=== PATIENT | female | born 1985 | race Caucasian/White ===

== ENCOUNTER 2017-09-06 09:48 | Emergency (ER) | payer OTHER | END 2017-09-06 13:03 | disposition home or self-care (01) | LOC: FTE 09:48 | DX: R51 Headache (principal); F43.9 Reaction to severe stress, unspecified | CPT/HCPCS: 99283; Z7502 ==

== ENCOUNTER 2017-11-11 19:19 | Emergency (ER) | payer OTHER | END 2017-11-11 21:26 | disposition home or self-care (01) | LOC: FTE 19:19 | DX: J06.9 Acute upper respiratory infection, unspecified (principal) | CPT/HCPCS: 71045; 99283-25 ==

== ENCOUNTER 2018-05-22 06:33 | Emergency (ER) | payer OTHER ==
[2018-05-22 07:05] LABS: ADD MAN DIFF? NO
[2018-05-22 07:06] LABS: BASOPHILS % 0.6 % (0.0-2.0); EOSINOPHILS # 0.1 10^3/ul (0.0-0.5); EOSINOPHILS % 2.7 % (0.0-7.0); HEMATOCRIT 39.9 % (37.0-47.0); HEMOGLOBIN 12.8 g/dl (12.0-16.0); LYMPHOCYTES # 1.1 10^3/ul (0.8-2.9); LYMPHOCYTES % 21.7 % (15.0-51.0); MEAN CORPUSCULAR HEMOGLOBIN 27.3 pg (29.0-33.0); MEAN CORPUSCULAR HGB CONC 32.1 g/dl (32.0-37.0); MEAN CORPUSCULAR VOLUME 85.1 fl (82.0-101.0); MEAN PLATELET VOLUME 10.3 fl (7.4-10.4); MONOCYTE # 0.5 10^3/ul (0.3-0.9); NEUTROPHIL # 3.4 10^3/ul (1.6-7.5); NEUTROPHILS % 64.6 % (39.0-77.0); PLATELET COUNT 292 10^3/UL (140-415); RED BLOOD COUNT 4.69 10^6/ul (4.20-5.40); RED CELL DISTRIBUTION WIDTH 13.3 % (11.5-14.5)
[2018-05-22 07:06] LABS: WHITE BLOOD COUNT 5.2 10^3/ul (4.8-10.8)
[2018-05-22 07:24] LABS: ANION GAP 12 (5-13); BLOOD UREA NITROGEN 11 mg/dl (7-20); CALCIUM 9.2 mg/dl (8.4-10.2); CARBON DIOXIDE 26 mmol/L (21-31); CHLORIDE 103 mmol/L (97-110); CREATININE 0.69 mg/dl (0.44-1.00); Estimated GFR > 60 mL/min (>60); GLUCOSE 107 mg/dl (70-220); POTASSIUM 3.5 mmol/L (3.5-5.1); SODIUM 141 mmol/L (135-144)
[2018-05-22 07:27] LABS: ADD UMIC NO; UR ASCORBIC ACID NEGATIVE (NEGATIVE); UR BACTERIA FEW /HPF (NONE SEEN); UR BILIRUBIN (Dip) NEGATIVE (NEGATIVE); UR BLOOD (Dip) NEGATIVE (NEGATIVE); UR CLARITY SLIGHTLY CLOUDY (CLEAR); UR COLOR STRAW (YELLOW); UR GLUCOSE (Dip) NEGATIVE (NEGATIVE); UR KETONES (Dip) NEGATIVE (NEGATIVE); UR LEUKOCYTE ESTERASE (Dip) NEGATIVE Leu/ul (NEGATIVE); UR NITRITE (Dip) NEGATIVE (NEGATIVE); UR RBC 1 /HPF (0-5); UR SPECIFIC GRAVITY (Dip) 1.005 (1.003-1.030); UR SQUAMOUS EPITHELIAL CELL FEW /HPF (FEW); UR TOTAL PROTEIN (Dip) NEGATIVE (NEGATIVE); UR UROBILINOGEN (Dip) NEGATIVE (NEGATIVE); UR WBC 0 /HPF (0-5)
[2018-05-22] MEDS: SOD CHLORIDE 0.9% 1,000 ML IV (07:27)
[2018-05-22 07:36] LABS: TROPONIN-I < 0.012 ng/ml (0.000-0.120)
[2018-05-22 07:43] LABS: AMPHETAMINE/METHAMPHETAMINE Negative (NEGATIVE); BARBITURATES Negative (NEGATIVE); BENZODIAZEPINES Negative (NEGATIVE); CANNABINOIDS Negative (NEGATIVE); COCAINE Negative (NEGATIVE); OPIATES Negative (NEGATIVE)
[2018-05-22] MEDS: LORAZEPAM 1 MG TAB PO (09:04)
[2018-05-22] MEDS: KETOROLAC 15 MG INJ IV (09:07)
== END 2018-05-22 09:57 | disposition home or self-care (01) ==
LOC: E/R 06:33
DX: F41.9 Anxiety disorder, unspecified (principal); R51 Headache; R06.4 Hyperventilation
CPT/HCPCS: 36415; 71045; 80048; 80307; 81001; 81003; 81025; 84484; 85025; 93005; 96374; 99285-25

== ENCOUNTER 2018-08-15 06:10 | Emergency (ER) | payer OTHER ==
[2018-08-15 07:30] LABS: ADD MAN DIFF? NO
[2018-08-15 07:31] LABS: WHITE BLOOD COUNT 4.2 10^3/ul (4.8-10.8)
[2018-08-15 07:31] LABS: BASOPHILS % 0.5 % (0.0-2.0); EOSINOPHILS # 0.1 10^3/ul (0.0-0.5); EOSINOPHILS % 1.4 % (0.0-7.0); HEMATOCRIT 36.8 % (37.0-47.0); HEMOGLOBIN 11.7 g/dl (12.0-16.0); LYMPHOCYTES # 0.9 10^3/ul (0.8-2.9); LYMPHOCYTES % 22.3 % (15.0-51.0); MEAN CORPUSCULAR HEMOGLOBIN 27.7 pg (29.0-33.0); MEAN CORPUSCULAR HGB CONC 31.8 g/dl (32.0-37.0); MEAN PLATELET VOLUME 10.8 fl (7.4-10.4); MONOCYTE # 0.6 10^3/ul (0.3-0.9); NEUTROPHIL # 2.6 10^3/ul (1.6-7.5); NEUTROPHILS % 61.3 % (39.0-77.0); PLATELET COUNT 269 10^3/UL (140-415); RED BLOOD COUNT 4.23 10^6/ul (4.20-5.40); RED CELL DISTRIBUTION WIDTH 13.7 % (11.5-14.5)
[2018-08-15 07:51] LABS: ANION GAP 5 (5-13); BLOOD UREA NITROGEN 13 mg/dl (7-20); CALCIUM 8.9 mg/dl (8.4-10.2); CARBON DIOXIDE 26 mmol/L (21-31); CHLORIDE 109 mmol/L (97-110); CREATININE 0.63 mg/dl (0.44-1.00); Estimated GFR > 60 mL/min (>60); GLUCOSE 90 mg/dl (70-220); POTASSIUM 3.9 mmol/L (3.5-5.1); SODIUM 140 mmol/L (135-144)
[2018-08-15 07:52] LABS: ADD UMIC YES; UR ASCORBIC ACID NEGATIVE (NEGATIVE); UR BACTERIA FEW /HPF (NONE SEEN); UR BILIRUBIN (Dip) NEGATIVE (NEGATIVE); UR BLOOD (Dip) 1+ mg/dL (NEGATIVE); UR CLARITY SLIGHTLY CLOUDY (CLEAR); UR COLOR YELLOW (YELLOW); UR GLUCOSE (Dip) NEGATIVE (NEGATIVE); UR KETONES (Dip) NEGATIVE (NEGATIVE); UR LEUKOCYTE ESTERASE (Dip) NEGATIVE Leu/ul (NEGATIVE); UR NITRITE (Dip) NEGATIVE (NEGATIVE); UR RBC 1 /HPF (0-5); UR SPECIFIC GRAVITY (Dip) 1.011 (1.003-1.030); UR SQUAMOUS EPITHELIAL CELL FEW /HPF (FEW); UR TOTAL PROTEIN (Dip) NEGATIVE (NEGATIVE); UR UROBILINOGEN (Dip) NEGATIVE (NEGATIVE); UR WBC 1 /HPF (0-5)
[2018-08-15] MEDS: KETOROLAC 15 MG INJ IV (08:10)
== END 2018-08-15 09:29 | disposition home or self-care (01) ==
LOC: E/R 06:10
DX: D25.9 Leiomyoma of uterus, unspecified (principal)
CPT/HCPCS: 36415; 76830; 76856; 80048; 81001; 81025; 85025; 96374; 99285-25

== ENCOUNTER 2018-10-17 13:06 | Emergency (ER) | payer OTHER ==
[2018-10-17] MEDS: IBUPROFEN 800 MG TAB PO (13:39)
== END 2018-10-17 14:35 | disposition home or self-care (01) ==
LOC: FTE 13:06
DX: M77.11 Lateral epicondylitis, right elbow (principal)
CPT/HCPCS: 73030; 73030-RT; 73080-RT; 99283-25

== ENCOUNTER 2018-12-04 13:02 | Emergency (ER) | payer OTHER ==
[2018-12-04] MEDS: IBUPROFEN 800 MG TAB PO (14:52)
== END 2018-12-04 15:56 | disposition home or self-care (01) ==
LOC: E/R 13:02
DX: R07.9 Chest pain, unspecified (principal)
CPT/HCPCS: 71045; 81025; 93005; 99284-25

== ENCOUNTER 2018-12-20 10:07 | Emergency (ER) | payer OTHER ==
[2018-12-20] MEDS: KETOROLAC 60 MG INJ IM (10:59)
== END 2018-12-20 11:09 | disposition home or self-care (01) ==
LOC: FTE 10:07
DX: M25.521 Pain in right elbow (principal)
CPT/HCPCS: 81025; 96372; 99284-25

== ENCOUNTER 2018-12-31 15:41 | Emergency (ER) | payer OTHER | END 2018-12-31 18:30 | disposition home or self-care (01) | LOC: FTE 15:41 | DX: F41.9 Anxiety disorder, unspecified (principal) | CPT/HCPCS: 99283; Z7502 ==

== ENCOUNTER 2019-01-22 20:14 | Emergency (ER) | payer OTHER | END 2019-01-22 23:29 | disposition home or self-care (01) | LOC: FTE 20:14 | DX: K14.6 Glossodynia (principal); Z32.02 Encounter for pregnancy test, result negative | CPT/HCPCS: 81025; 99282 ==